=== PATIENT | female | born 1980 | race Asian ===

== ENCOUNTER 2020-11-20 23:35 | Emergency (ER) | payer OTHER ==
[~2020-11-20] VITALS: Ht 162.6 cm; Wt 53.5 kg
[2020-11-20 23:46] VITALS: BP 133/89
[2020-11-21] MEDS ORDERED: AMOX1TAB8 PO (00:11)
[2020-11-21 00:26] VITALS: BP 133/89
== END 2020-11-21 00:20 | disposition home or self-care (01) ==
LOC: MED 23:35
DX: S61.451A Open bite of right hand, initial encounter (principal); Z79.899 Other long term (current) drug therapy; W50.3XXA Accidental bite by another person, initial encounter; Y93.89 Activity, other specified; Y92.239 Unspecified place in hospital as the place of occurrence of the external cause; Y99.0 Civilian activity done for income or pay
CPT/HCPCS: 90471; 90715; 99283